=== PATIENT | female | born 1960 | race Caucasian/White ===

== ENCOUNTER 2019-02-16 11:38 | Day surgery (SDC) | payer MEDICARE, OTHER ==
[~2019-02-16 11:38] MED LIST: DEXAMETHASONE SOD PHOS 4 MG/ML VIAL ONE; KETOROLAC TROMETHAMINE 30 MG/1ML VIAL ONE; LACTATED RINGERS 1,000 ML IV.SOLN IV ONE; LIDOCAINE HCL 2% PF 100MG/5ML VIAL IJ ONE; MIDAZOLAM HCL 2 MG/2 ML VIAL ONE; ONDANSETRON HCL/PF 4 MG/ 2ML VIAL ONE; PROPOFOL 200 MG/20 ML VIAL IV ONE; SEVOFLURANE 250 ML LIQUID IH ONE; fentaNYL CITRATE/PF 100 MCG/2 ML INJ. ONE
== END 2019-02-16 15:10 | disposition home or self-care (01) ==
LOC: OPSURG 11:38
PROVIDERS: ATTEND Specialist
DX: M99.05 Segmental and somatic dysfunction of pelvic region (principal); M70.61 Trochanteric bursitis, right hip; M99.06 Segmental and somatic dysfunction of lower extremity; M47.817 Spondylosis without myelopathy or radiculopathy, lumbosacral region; M99.02 Segmental and somatic dysfunction of thoracic region; M54.11 Radiculopathy, occipito-atlanto-axial region
CPT/HCPCS: 22505; 27198; 27275; J1100; J1885; J2001; J2250; J2405; J2704; J3010; J7120

== ENCOUNTER 2019-02-17 11:28 | Day surgery (SDC) | payer MEDICARE, OTHER ==
[~2019-02-17 11:28] MED LIST changes: -DEXAMETHASONE SOD PHOS 4 MG/ML VIAL ONE; -KETOROLAC TROMETHAMINE 30 MG/1ML VIAL ONE; -MIDAZOLAM HCL 2 MG/2 ML VIAL ONE; -ONDANSETRON HCL/PF 4 MG/ 2ML VIAL ONE; -SEVOFLURANE 250 ML LIQUID IH ONE; -fentaNYL CITRATE/PF 100 MCG/2 ML INJ. ONE
== END 2019-02-17 14:43 | disposition home or self-care (01) ==
LOC: OPSURG 11:28
PROVIDERS: ATTEND Specialist
DX: M99.05 Segmental and somatic dysfunction of pelvic region (principal); M70.61 Trochanteric bursitis, right hip; M99.06 Segmental and somatic dysfunction of lower extremity; M47.817 Spondylosis without myelopathy or radiculopathy, lumbosacral region; M99.02 Segmental and somatic dysfunction of thoracic region; M54.11 Radiculopathy, occipito-atlanto-axial region
CPT/HCPCS: 22505; 27198; 27275; J2001; J2704; J7120

== ENCOUNTER 2019-02-18 10:55 | Day surgery (SDC) | payer MEDICARE, OTHER ==
[~2019-02-18 10:55] MED LIST changes: +DEXAMETHASONE SOD PHOS 4 MG/ML VIAL ONE; +KETOROLAC TROMETHAMINE 30 MG/1ML VIAL ONE; +MIDAZOLAM HCL 2 MG/2 ML VIAL ONE; +ONDANSETRON HCL/PF 4 MG/ 2ML VIAL ONE; +SEVOFLURANE 250 ML LIQUID IH ONE; +fentaNYL CITRATE/PF 100 MCG/2 ML INJ. ONE
== END 2019-02-18 13:15 | disposition home or self-care (01) ==
LOC: OPSURG 10:55
PROVIDERS: ATTEND Specialist
DX: M99.05 Segmental and somatic dysfunction of pelvic region (principal); M70.61 Trochanteric bursitis, right hip; M99.06 Segmental and somatic dysfunction of lower extremity; M47.817 Spondylosis without myelopathy or radiculopathy, lumbosacral region; M99.02 Segmental and somatic dysfunction of thoracic region; M54.11 Radiculopathy, occipito-atlanto-axial region
CPT/HCPCS: 22505; 27198; 27275; J1100; J1885; J2001; J2250; J2405; J2704; J3010; J7120